=== PATIENT | female | born 1950 | race Caucasian/White ===

== ENCOUNTER 2016-06-12 03:30 | Inpatient (IN) | payer MEDICARE, OTHER ==
[~2016-06-12] VITALS: Ht 154.9 cm; Wt 100.6 kg
[2016-06-12] MEDS ORDERED: ONDANSETRON 2MG/ML, 2ML IVPush ONE (04:00)
[2016-06-12] MEDS ORDERED: MORPHINE SULFATE 4 MG/ML, 1ML IVPush PRN (04:00)
[2016-06-12] MEDS ORDERED: SODIUM CHLORIDE 0.9% 1,000ML IVBOLUS ONE (04:00)
[2016-06-12] MEDS ORDERED: ONDANSETRON 2MG/ML, 2ML ONE (04:16)
[2016-06-12] MEDS ORDERED: MORPHINE SULFATE 4 MG/ML, 1ML ONE (04:16)
[2016-06-12 04:51] LABS: ASPARTATE AMINO TRANSFERASE 115 U/L (15-37); BLOOD UREA NITROGEN 16 mg/dL (7-18)
[2016-06-12] MEDS ORDERED: OMNIPAQUE 350 MG/ML, 100ML BOTTLE ONE (05:17)
[2016-06-12] MEDS ORDERED: CEFTRIAXONE PMX 1GM/50ML 50 ML IV ONE (05:30)
[2016-06-12] MEDS ORDERED: CEFTRIAXONE PMX 1GM/50ML 50 ML ONE (06:09)
[2016-06-12] MEDS ORDERED: SODIUM CHLORIDE 0.9% 1,000 ML IV ONE (07:27)
[2016-06-12] MEDS ORDERED: SODIUM CHLORIDE FLUSH 10ML SYR IVF PRN (07:30)
[2016-06-12 08:03] VITALS: BP 120/66
[2016-06-12] MEDS ORDERED: SODIUM CHLORIDE 0.9% 1,000 ML IV SCH (09:01)
[2016-06-12] MEDS ORDERED: BISACODYL 10 MG SUPP PR PRN (09:30)
[2016-06-12] MEDS ORDERED: ONDANSETRON 2MG/ML, 2ML IVP PRN (09:30)
[2016-06-12] MEDS ORDERED: LABETALOL 5MG/ML, 20ML IV PRN (09:30)
[2016-06-12] MEDS: MORPHINE SULFATE 4 MG/ML, 1ML IVPush PRN ×4 (09:37→20:43)
[2016-06-12] MEDS: NICOTINE 7 MG/24 HR PATCH.TD24 TD SCH (10:00)
[2016-06-12] MEDS: LACTATED RINGERS 1,000 ML IV SCH ×3 (12:38→22:15)
[2016-06-12 14:41] VITALS: BP 113/62
[2016-06-12] MEDS: PANTOPRAZOLE 40 MG IV IVPush SCH (15:25)
[2016-06-12 16:33] LABS: ACETAMINOPHEN < 2 mcg/mL (10-30)
[2016-06-12 20:06] VITALS: BP 103/64
[2016-06-13] VITALS (13 sets, daily range): BP systolic 100–137; BP diastolic 56–76
[2016-06-13] MEDS: LACTATED RINGERS 1,000 ML IV SCH ×4 (02:18→22:11)
[2016-06-13] MEDS: MORPHINE SULFATE 4 MG/ML, 1ML IVPush PRN ×2 (02:18→17:38)
[2016-06-13 05:49] LABS: BLOOD UREA NITROGEN 21 mg/dL (7-18)
[2016-06-13 05:52] LABS: ASPARTATE AMINO TRANSFERASE 108 U/L (15-37)
[2016-06-13] MEDS ORDERED: FENTANYL PF 250 MCG/5ML ONE (09:01)
[2016-06-13] MEDS ORDERED: HYDROmorphone 1 MG/ML, 1ML IV PRN (09:30)
[2016-06-13] MEDS ORDERED: LABETALOL 5MG/ML, 20ML IV PRN (09:30)
[2016-06-13] MEDS ORDERED: ONDANSETRON 2MG/ML, 2ML IVPush PRN (09:30)
[2016-06-13] MEDS ORDERED: OXYcodone 5 MG/5 ML ORAL.SOL UDC PO PRN (09:30)
[2016-06-13] MEDS ORDERED: FENTANYL PF 100 MCG/2ML IV PRN (09:30)
[2016-06-13] MEDS ORDERED: hydrALAzine 20 MG/ML, 1ML IV PRN (09:30)
[2016-06-13 09:53] LABS: HEP B SURF. AB < 3.1 mIU/mL (0.0-10.0)
[2016-06-13] MEDS ORDERED: OMNIPAQUE 350 MG/ML, 50 ML BOTTLE ONE (09:55)
[2016-06-13] MEDS: NICOTINE 7 MG/24 HR PATCH.TD24 TD SCH (10:00)
[2016-06-13 10:32] LABS: HEPATITIS C VIRUS ANTIBODY Nonreactive (Nonreactive)
[2016-06-13] MEDS: CEFTRIAXONE PMX 1GM/50ML 50 ML IV SCH (12:27)
[2016-06-13] MEDS: PANTOPRAZOLE 40 MG IV IVPush SCH (12:27)
[2016-06-13] MEDS: PHYTONADIONE 10 MG in SODIUM CHLORIDE 0.9% 50 ML IV SCH (13:11)
[2016-06-13] MEDS ORDERED: DIPHENHYDRAMINE 25 MG CAPSULE PO ONE (21:00)
[2016-06-14 01:48] VITALS: BP 102/58
[2016-06-14] MEDS: LACTATED RINGERS 1,000 ML IV SCH ×6 (02:10→22:16)
[2016-06-14 05:20] LABS: BLOOD UREA NITROGEN 21 mg/dL (7-18)
[2016-06-14 05:25] LABS: ASPARTATE AMINO TRANSFERASE 80 U/L (15-37)
[2016-06-14 07:43] VITALS: BP 124/65
[2016-06-14] MEDS ORDERED: PROPOFOL 10 MG/ML, 20ML ONE ×2 (09:05→14:22)
[2016-06-14] MEDS ORDERED: SUCCINYLCHOLINE 20 MG/ML, 10ML ONE ×2 (09:05→14:22)
[2016-06-14] MEDS ORDERED: DEXAMETHASONE 4 MG/ML, 1ML ONE (09:05)
[2016-06-14] MEDS ORDERED: ROCURONIUM 10 MG/ML ONE ×2 (09:05→14:22)
[2016-06-14] MEDS: PANTOPRAZOLE 40 MG IV IVPush SCH (09:09)
[2016-06-14] MEDS: NICOTINE 7 MG/24 HR PATCH.TD24 TD SCH (09:16)
[2016-06-14] MEDS: MORPHINE SULFATE 4 MG/ML, 1ML IVPush PRN (10:08)
[2016-06-14] MEDS ORDERED: BUPIVACAINE/PF-EPI 0.5% 1:200K ONE (11:10)
[2016-06-14] MEDS: CEFTRIAXONE PMX 1GM/50ML 50 ML IV SCH (12:09)
[2016-06-14] MEDS: PHYTONADIONE 10 MG in SODIUM CHLORIDE 0.9% 50 ML IV SCH (13:39)
[2016-06-14] MEDS ORDERED: FENTANYL PF 250 MCG/5ML ONE (14:03)
[2016-06-14] MEDS ORDERED: MIDAZOLAM 1 MG/ML, 2ML ONE (14:03)
[2016-06-14] MEDS ORDERED: ONDANSETRON 2MG/ML, 2ML ONE (14:22)
[2016-06-14] MEDS ORDERED: NEOSTIGMINE 1 MG/ML, 10ML ONE (14:22)
[2016-06-14] MEDS ORDERED: GLYCOPYRROLATE 0.2MG/1ML ONE (14:22)
[2016-06-14] MEDS ORDERED: hydrALAzine 20 MG/ML, 1ML IV PRN (14:30)
[2016-06-14] MEDS ORDERED: LABETALOL 5MG/ML, 20ML IV PRN (14:30)
[2016-06-14] MEDS ORDERED: HYDROmorphone 1 MG/ML, 1ML IV PRN (14:30)
[2016-06-14] MEDS ORDERED: FENTANYL PF 100 MCG/2ML IV PRN (14:30)
[2016-06-14] MEDS ORDERED: ONDANSETRON 2MG/ML, 2ML IVPush PRN (14:30)
[2016-06-14] MEDS ORDERED: BUPIVACAINE/PF-EPI 0.5% 1:200K INFIL ONE (14:45)
[2016-06-14] MEDS ORDERED: OXYcodone 5 MG/5 ML ORAL.SOL UDC ONE (15:10)
[2016-06-14] MEDS: OXYcodone 5 MG/5 ML ORAL.SOL UDC PO PRN (15:11)
[2016-06-14 15:45] VITALS: BP 103/45
[2016-06-14 20:00] VITALS: BP 100/60
[2016-06-14 23:50] VITALS: BP 103/71
[2016-06-15] MEDS: LACTATED RINGERS 1,000 ML IV SCH ×2 (01:44→05:42)
[2016-06-15 02:16] VITALS: BP 105/62
[2016-06-15 05:44] LABS: ASPARTATE AMINO TRANSFERASE 87 U/L (15-37); BLOOD UREA NITROGEN 17 mg/dL (7-18)
[2016-06-15 07:38] VITALS: BP 90/43
[2016-06-15 07:42] VITALS: BP 119/73
[2016-06-15] MEDS: NICOTINE 7 MG/24 HR PATCH.TD24 TD SCH (10:00)
[2016-06-15] MEDS: PANTOPRAZOLE 40 MG IV IVPush SCH (10:43)
[2016-06-15] MEDS: PHYTONADIONE 10 MG in SODIUM CHLORIDE 0.9% 50 ML IV SCH (12:52)
[2016-06-15] MEDS: CEFTRIAXONE PMX 1GM/50ML 50 ML IV SCH (13:39)
[2016-06-15] MEDS ORDERED: FUROSEMIDE 20 MG/2 ML IV ONE (14:30)
[2016-06-15 14:43] VITALS: BP 109/63
[2016-06-15] MEDS ORDERED: ALBUTEROL/IPRATROPIUM 2.5MG/0.5MG, 3 ML NPPB PRN (16:00)
[2016-06-15 18:07] LABS: ANA DIRECT Negative (Negative); COMPLEMENT C3 80 mg/dL (82-167); COMPLEMENT C4 15 mg/dL (14-44); INTERMYOFIBRILLAR AB Negative (Neg:<1:20); MITOCHONDRIAL (M2) AB 6.2 Units (0.0-20.0); PARIETAL CELL AB 2.6 Units (0.0-20.0); RA LATEX TURBIDITY <10.0 IU/mL (0.0-13.9); SARCOLEMMA AB Negative (Neg:<1:20); SJOGREN'S SS-A AB <0.2 AI (0.0-0.9); STRIATION AB Negative (Neg:<1:40); THYROID PEROXIDASE (TPO) AB 46 IU/mL (0-34)
[2016-06-15 20:08] VITALS: BP 99/55
[2016-06-16 03:19] VITALS: BP 91/58
[2016-06-16 07:38] VITALS: BP 100/52
[2016-06-16] MEDS: PANTOPRAZOLE 40 MG IV IVPush SCH (09:00)
[2016-06-16 09:52] LABS: ASPARTATE AMINO TRANSFERASE 96 U/L (15-37); BLOOD UREA NITROGEN 14 mg/dL (7-18)
[2016-06-16] MEDS: NICOTINE 7 MG/24 HR PATCH.TD24 TD SCH (10:00)
[2016-06-16] MEDS ORDERED: CEFD300C37 PO (12:56)
[2016-06-16] MEDS ORDERED: ALBU18HF INH (12:56)
[2016-06-16] MEDS: OXYcodone 5 MG/5 ML ORAL.SOL UDC PO PRN (13:32)
[2016-06-16] MEDS: CEFTRIAXONE PMX 1GM/50ML 50 ML IV SCH ×2 (13:45→14:10)
[2016-06-16 14:13] VITALS: BP 107/65
== END 2016-06-16 16:50 | disposition home or self-care (01) | DRG 421 ==
LOC: ED 04:21 → EDIP 07:27 → 4NOR 07:58 → DCLOUNGE 06-16 16:00
PROVIDERS: ADMIT Family Medicine; ATTEND Family Medicine
PROC: 30233L1 Transfusion of Nonautologous Fresh Plasma into Peripheral Vein, Percutaneous Approach (ICD-10-PCS; 2016-06-12)
PROC: 30233K1 Transfusion of Nonautologous Frozen Plasma into Peripheral Vein, Percutaneous Approach (ICD-10-PCS; 2016-06-12)
PROC: 0DB68ZX Excision of Stomach, Via Natural or Artificial Opening Endoscopic, Diagnostic (ICD-10-PCS; 2016-06-13)
PROC: 0FC98ZZ Extirpation of Matter from Common Bile Duct, Via Natural or Artificial Opening Endoscopic (ICD-10-PCS; 2016-06-13)
PROC: BF111ZZ Fluoroscopy of Biliary and Pancreatic Ducts using Low Osmolar Contrast (ICD-10-PCS; 2016-06-13)
PROC: 0WJG4ZZ Inspection of Peritoneal Cavity, Percutaneous Endoscopic Approach (ICD-10-PCS; principal; 2016-06-14 14:30)
DX: K85.10 Biliary acute pancreatitis without necrosis or infection (principal); D68.9 Coagulation defect, unspecified; E44.0 Moderate protein-calorie malnutrition; B17.9 Acute viral hepatitis, unspecified; K76.6 Portal hypertension; R18.8 Other ascites; Z68.41 Body mass index [BMI] 40.0-44.9, adult; D64.9 Anemia, unspecified; B96.20 Unspecified Escherichia coli [E. coli] as the cause of diseases classified elsewhere; D69.6 Thrombocytopenia, unspecified; D75.89 Other specified diseases of blood and blood-forming organs; E66.01 Morbid (severe) obesity due to excess calories; F17.210 Nicotine dependence, cigarettes, uncomplicated; G89.29 Other chronic pain; M54.5 Low back pain; K80.20 Calculus of gallbladder without cholecystitis without obstruction; J44.9 Chronic obstructive pulmonary disease, unspecified; K31.89 Other diseases of stomach and duodenum; K72.90 Hepatic failure, unspecified without coma; K74.69 Other cirrhosis of liver; M04.8 Other autoinflammatory syndromes; Z83.3 Family history of diabetes mellitus; Z90.710 Acquired absence of both cervix and uterus; R59.1 Generalized enlarged lymph nodes
CPT/HCPCS: 36415; 71010; 74177; 74181; 74328; 76700; 80053; 80061; 80307; 80329; 81001; 82728; 83516; 83540; 83550; 83690; 83735; 84100; 85025; 85610; 86038; 86160; 86225; 86235; 86255; 86256; 86376; 86431; 86706; 86803; 86850; 86900; 87077; 87086; 87186; 87340; 88305; 93005; 94640; 96365; 96375; J0696; J1100; J2250; J2405; J2704; J2710; J3010; J3430; J3490; J7620; Q9967; C9113; G0480; J0330; J1940; J7030; J7120; P9017; Q0163

== ENCOUNTER 2016-06-19 17:05 | Inpatient (IN) | payer MEDICARE ==
[~2016-06-19] VITALS: Ht 156.2 cm; Wt 96.2 kg
[~2016-06-19 17:05] MED LIST: ALBU18HF INH; CEFD300C37 PO
[2016-06-19] MEDS ORDERED: SODIUM CHLORIDE FLUSH 10ML SYR IVF ONE (17:30)
[2016-06-19 18:01] LABS: ASPARTATE AMINO TRANSFERASE 116 U/L (15-37); BLOOD UREA NITROGEN 14 mg/dL (7-18)
[2016-06-19] MEDS ORDERED: POTASSIUM CHLORIDE 20 MEQ TAB.ER.PRT PO ONE (21:30)
[2016-06-19] MEDS ORDERED: CEFTRIAXONE PMX 1GM/50ML 50 ML IV SCH (21:30)
[2016-06-19] MEDS ORDERED: SODIUM CHLORIDE FLUSH 10ML SYR IVF PRN (22:00)
[2016-06-19 23:16] VITALS: BP 122/71
[2016-06-20] MEDS ORDERED: ONDANSETRON ODT 4 MG PO PRN (00:30)
[2016-06-20 01:11] VITALS: BP 109/69
[2016-06-20] MEDS: SPIRONOLACTONE 25 MG TABLET PO SCH ×3 (01:17→20:36)
[2016-06-20] MEDS: CEFDINIR 300 MG CAPSULE PO SCH ×3 (01:17→20:36)
[2016-06-20 05:07] LABS: BLOOD UREA NITROGEN 12 mg/dL (7-18)
[2016-06-20 05:32] LABS: ASPARTATE AMINO TRANSFERASE 110 U/L (15-37)
[2016-06-20 07:48] VITALS: BP 127/72
[2016-06-20] MEDS: FUROSEMIDE 20 MG/2 ML IV SCH (10:57)
[2016-06-20 12:52] VITALS: BP 97/58
[2016-06-20 19:37] VITALS: BP 108/64
[2016-06-21 02:58] VITALS: BP 96/62
[2016-06-21 04:38] LABS: BLOOD UREA NITROGEN 11 mg/dL (7-18)
[2016-06-21 06:51] VITALS: BP 96/62
[2016-06-21] MEDS: SPIRONOLACTONE 25 MG TABLET PO SCH ×2 (08:49→21:42)
[2016-06-21] MEDS: CEFDINIR 300 MG CAPSULE PO SCH ×2 (08:49→21:42)
[2016-06-21] MEDS: FUROSEMIDE 20 MG/2 ML IV SCH (08:49)
[2016-06-21 12:40] VITALS: BP 96/61
[2016-06-21 21:55] VITALS: BP 99/63
[2016-06-22 03:49] VITALS: BP 103/64
[2016-06-22 06:03] LABS: BLOOD UREA NITROGEN 12 mg/dL (7-18)
[2016-06-22 06:07] LABS: ASPARTATE AMINO TRANSFERASE 123 U/L (15-37)
[2016-06-22] MEDS ORDERED: CEFD300C37 PO (07:50)
[2016-06-22] MEDS ORDERED: SPIR25TA PO (07:50)
[2016-06-22] MEDS ORDERED: FURO-93 PO (07:50)
[2016-06-22 08:00] VITALS: BP 102/65
[2016-06-22] MEDS: SPIRONOLACTONE 25 MG TABLET PO SCH (09:34)
[2016-06-22] MEDS: CEFDINIR 300 MG CAPSULE PO SCH (09:34)
[2016-06-22] MEDS: FUROSEMIDE 20 MG/2 ML IV SCH (09:34)
[2016-06-22 12:19] VITALS: BP 93/60
== END 2016-06-22 13:50 | disposition home or self-care (01) | DRG 432 ==
LOC: SUATTDRO 20:46 → ED 21:28 → EDIP 21:53 → 3NW 23:04
PROVIDERS: ADMIT Internal Medicine; ATTEND Internal Medicine
DX: K70.31 Alcoholic cirrhosis of liver with ascites (principal); K85.90 Acute pancreatitis without necrosis or infection, unspecified; E43 Unspecified severe protein-calorie malnutrition; J96.10 Chronic respiratory failure, unspecified whether with hypoxia or hypercapnia; N39.0 Urinary tract infection, site not specified; D68.9 Coagulation defect, unspecified; K72.90 Hepatic failure, unspecified without coma; D69.6 Thrombocytopenia, unspecified; E87.6 Hypokalemia; E66.9 Obesity, unspecified; F17.200 Nicotine dependence, unspecified, uncomplicated; G89.29 Other chronic pain; J44.9 Chronic obstructive pulmonary disease, unspecified; K80.70 Calculus of gallbladder and bile duct without cholecystitis without obstruction; Z83.3 Family history of diabetes mellitus; Z90.710 Acquired absence of both cervix and uterus; Z99.81 Dependence on supplemental oxygen; Z84.89 Family history of other specified conditions; Z68.39 Body mass index [BMI] 39.0-39.9, adult; R60.9 Edema, unspecified
CPT/HCPCS: 36415; 74181; 76700; 80048; 80053; 81001; 82150; 82247; 82607; 82746; 83690; 83735; 83880; 84100; 84443; 85025; 85610; 85730; 87086; 87106; 93306; 96374; J1940

== ENCOUNTER → 2016-12-02 | Outpatient (CLI) | payer MEDICARE ==
[~2016-12-02] MED LIST changes: +FURO-93 PO; +SPIR25TA PO
[2016-12-02 09:17] LABS: BLOOD UREA NITROGEN 13 mg/dL (7-18)
[2016-12-02 09:20] LABS: ASPARTATE AMINO TRANSFERASE 79 U/L (15-37)
== END | disposition home or self-care (01) ==
LOC: CFH 07:32
PROVIDERS: ATTEND Internal Medicine Gastroenterology
DX: K74.69 Other cirrhosis of liver (principal); R16.1 Splenomegaly, not elsewhere classified; K82.0 Obstruction of gallbladder; K85.12 Biliary acute pancreatitis with infected necrosis; R18.8 Other ascites; J44.9 Chronic obstructive pulmonary disease, unspecified
CPT/HCPCS: 36415; 76700; 80053

== ENCOUNTER 2017-03-12 12:15 | Emergency (ER) | payer MEDICARE ==
[~2017-03-12] VITALS: Ht 165.1 cm; Wt 77.5 kg
[2017-03-12 12:40] VITALS: BP 114/71
== END 2017-03-12 15:57 | disposition home or self-care (01) ==
LOC: ED 15:48
DX: S20.211A Contusion of right front wall of thorax, initial encounter (principal); Z87.891 Personal history of nicotine dependence; W18.39XA Other fall on same level, initial encounter; Y93.89 Activity, other specified; Y92.488 Other paved roadways as the place of occurrence of the external cause; Y99.8 Other external cause status
CPT/HCPCS: 99284

== ENCOUNTER 2017-03-23 00:50 | Inpatient (IN) | payer MEDICARE ==
[~2017-03-23] VITALS: Ht 152.4 cm; Wt 75.0 kg
[2017-03-23] MEDS ORDERED: LORazepam 2 MG/ML, 1ML ONE (01:47)
[2017-03-23] MEDS ORDERED: SODIUM CHLORIDE FLUSH 10ML SYR IVF ONE (02:00)
[2017-03-23] MEDS ORDERED: LORazepam 2 MG/ML, 1ML IVP ONE (02:00)
[2017-03-23 02:18] LABS: INTERNATIONAL NORMALIZED RATIO 1.78 (0.93-1.1); PROTHROMBIN TIME 18.1 Seconds (9.6-11.5)
[2017-03-23 02:21] LABS: ALANINE AMINOTRANSFERASE 40 U/L (12-78); ALBUMIN 1.8 g/dL (3.4-5.0); ANION GAP 22 mmol/L (5-15); CALCIUM 8.4 mg/dL (8.5-10.1); CHLORIDE 102 mmol/L (98-107); CREATININE 3.17 mg/dL (0.55-1.02)
[2017-03-23 02:25] LABS: ALKALINE PHOSPHATASE 207 U/L (45-117); BILIRUBIN,TOTAL 8.5 mg/dL (0.2-1.0); TOTAL PROTEIN 6.3 g/dL (6.4-8.2); TROPONIN I < 0.015 ng/mL (0.000-0.045)
[2017-03-23] MEDS ORDERED: DEXTROSE 50%, 50ML SYRINGE ONE ×2 (02:33→02:52)
[2017-03-23] MEDS ORDERED: DEXAMETHASONE 4 MG/ML, 1ML ONE (02:52)
[2017-03-23] MEDS ORDERED: INSULIN REGULAR 100 UNITS/ML, 3ML VIAL ONE (02:52)
[2017-03-23] MEDS ORDERED: SODIUM BICARB 8.4%, 50ML SYRINGE ONE (02:52)
[2017-03-23] MEDS ORDERED: CALCIUM CHLORIDE 10%, 10ML SYR ONE (02:52)
[2017-03-23] MEDS ORDERED: DEXTROSE 50%, 50ML SYRINGE IVPush ONE ×2 (03:00)
[2017-03-23] MEDS ORDERED: INSULIN REGULAR 100 UNITS/ML, 3ML VIAL IVPush ONE (03:00)
[2017-03-23] MEDS ORDERED: SODIUM POLY SULFONATE UDC 15 GM/60 ML PO ONE (03:00)
[2017-03-23] MEDS ORDERED: D5%-0.45% NACL 1,000 ML IV SCH (03:00)
[2017-03-23] MEDS ORDERED: ALBUTEROL 0.5%, 20ML NPPB ONE (03:00)
[2017-03-23] MEDS ORDERED: DEXAMETHASONE 4 MG/ML, 1ML IVPush ONE (03:00)
[2017-03-23] MEDS ORDERED: FUROSEMIDE 20 MG/2 ML IV ONE (03:00)
[2017-03-23] MEDS ORDERED: CALCIUM CHLORIDE 10%, 10ML SYR IVPush ONE (03:00)
[2017-03-23] MEDS ORDERED: SODIUM BICARB 8.4%, 50ML SYRINGE IVPush ONE (03:00)
[2017-03-23 03:20] LABS: MD YES; MEAN CORPUSCULAR HEMOGLOBIN 36.5 pg (27.0-34.8); MEAN CORPUSCULAR HGB CONC 32.8 g/dL (32.4-35.8); MEAN CORPUSCULAR VOLUME 111.4 fL (80-100); MEAN PLATELET VOLUME 9.6 fL (7.4-10.4); PLATELET COUNT 153 x10^3/uL (130-400); RED BLOOD COUNT 3.58 x10^6/uL (3.82-5.3); RED CELL DISTRIBUTION WIDTH 17.7 % (9.6-15.2)
[2017-03-23 03:22] LABS: BAND#(MANUAL) 2.25 x10^3/uL; BANDS%(MANUAL) 30 % (0-7); LYMPH#(MANUAL) 1.95 x10^3/uL (1-3.4); LYMPHS% (MANUAL) 26 % (22-44); METAMYELOCYTES# (MANUAL) 0.15 x10^3/uL (0-0); METAMYELOCYTES% (MANUAL) 2 % (0-1); MONOS#(MANUAL) 0.23 x10^3/uL (0.3-2.7); MONOS% (MANUAL) 3 % (2-9); SEG#(MANUAL) 2.93 x10^3/uL (1.8-6.8); SEGS% (MANUAL) 39 % (42-75)
[2017-03-23 03:23] LABS: <PLATELET ESTIMATE> ADEQUATE; <PLT MORPHOLOGY> NORMAL PLT MORPH; ANISOCYTOSIS 1+; POLYCHROMASIA 1+
[2017-03-23] MEDS ORDERED: FUROSEMIDE 40 MG/4 ML ONE (03:52)
[2017-03-23] MEDS ORDERED: morphine SULFATE 10 MG/ML, 1ML IVPush PRN (04:00)
[2017-03-23] MEDS ORDERED: POLYETHYLENE GLYCOL 17 GM PACKET PO PRN (04:00)
[2017-03-23] MEDS ORDERED: D5%-0.9% NACL 1,000 ML IV SCH (04:00)
[2017-03-23] MEDS: ALBUMIN HUMAN 25% 100 ML IV SCH ×2 (04:00→10:00)
[2017-03-23] MEDS ORDERED: DOCUSATE 100 MG CAPSULE PO PRN (04:00)
[2017-03-23] MEDS ORDERED: ONDANSETRON 2MG/ML, 2ML IVPush PRN (04:00)
[2017-03-23] MEDS ORDERED: BISACODYL 10 MG SUPP PR PRN ×2 (04:00→07:30)
[2017-03-23] MEDS ORDERED: hydrALAzine 20 MG/ML, 1ML IVPush PRN (04:00)
[2017-03-23] MEDS ORDERED: KETAMINE 100 MG/ML, 5ML ONE (04:07)
[2017-03-23] MEDS ORDERED: MIDAZOLAM HCL 25 MG in SODIUM CHLORIDE 0.9% 245 ML IV PRN (04:08)
[2017-03-23] MEDS ORDERED: FENTANYL PF 100 MCG/2ML ONE (04:18)
[2017-03-23] MEDS ORDERED: PIPERACILLIN/TAZO 2.25 GM in SODIUM CHLORIDE 0.9% 50 ML IV SCH (04:30)
[2017-03-23] MEDS ORDERED: KETAMINE 100 MG/ML, 5ML IV ONE (04:30)
[2017-03-23] MEDS ORDERED: FENTANYL PF 2,500 MCG in SODIUM CHLORIDE 0.9% 200 ML IV ONE (04:30)
[2017-03-23] MEDS ORDERED: AZITHROMYCIN 500 MG in SODIUM CHLORIDE 0.9% 250 ML IV SCH (04:30)
[2017-03-23] MEDS ORDERED: ROCURONIUM 10 MG/ML,10ML IVPush ONE (04:30)
[2017-03-23] MEDS ORDERED: CEFTRIAXONE PMX 2GM/50ML 50 ML IV SCH (04:30)
[2017-03-23] MEDS ORDERED: FENTANYL PF 100 MCG/2ML IV ONE (04:30)
[2017-03-23] MEDS ORDERED: SODIUM BICARBONATE 8.4% 150 MEQ in DEXTROSE 5% 1,000 ML IV SCH ×2 (05:00→07:30)
[2017-03-23 05:09] LABS: ANION GAP 21 mmol/L (5-15); CALCIUM 8.3 mg/dL (8.5-10.1); CHLORIDE 104 mmol/L (98-107); CREATININE 3.29 mg/dL (0.55-1.02)
[2017-03-23 05:13] LABS: TROPONIN I < 0.015 ng/mL (0.000-0.045)
[2017-03-23 05:22] LABS: FREE T4 (FREE THYROXINE) 1.15 ng/dL (0.76-1.46); THYROID STIMULATING HORMONE 4.5 mIU/L (0.358-3.740)
[2017-03-23 05:22] LABS: MICROSCOPIC INDICATED
[2017-03-23 05:30] LABS: CULTURE INDICATED? YES
[2017-03-23 05:48] VITALS: BP 107/33
[2017-03-23] MEDS ORDERED: NOREPINEPHRINE 1 MG/ML, 4ML ONE (06:51)
[2017-03-23] MEDS ORDERED: ALBUTEROL/IPRATROPIUM 2.5MG/0.5MG, 3 ML NPPB SCH (07:00)
[2017-03-23] MEDS ORDERED: NOREPINEPHRINE 4 MG in SODIUM CHLORIDE 0.9% 246 ML IV PRN (07:10)
[2017-03-23] MEDS ORDERED: SENNOSIDES 8.8 MG/5 ML ORAL SOL NG PRN (07:30)
[2017-03-23] MEDS ORDERED: MIDAZOLAM 1 MG/ML, 2ML IVPush PRN (07:30)
[2017-03-23] MEDS ORDERED: LIDOCAINE-MPF 1%, 2ML ENDO PRN (07:30)
[2017-03-23] MEDS ORDERED: FENTANYL PF 100 MCG/2ML IVPush PRN (07:30)
[2017-03-23] MEDS ORDERED: PHARMACY MAY ADJ FOR RENAL FX MC SCH (07:30)
[2017-03-23] MEDS ORDERED: FAMOTIDINE 20 MG/2 ML IV SCH (07:30)
[2017-03-23] MEDS ORDERED: SENNA/DOCUSATE TABLET NG PRN (07:30)
[2017-03-23] MEDS ORDERED: LACTULOSE 20 GM/30 ML UDC NG PRN (07:30)
[2017-03-23] MEDS ORDERED: SODIUM CHLORIDE 0.9% 1,000ML IVBOLUS ONE ×2 (07:30→10:30)
[2017-03-23] MEDS ORDERED: ALBUTEROL/IPRATROPIUM 2.5MG/0.5MG, 3 ML INLINE SCH (07:30)
[2017-03-23 07:54] LABS: TROPONIN I < 0.015 ng/mL (0.000-0.045)
[2017-03-23] MEDS ORDERED: ROCURONIUM 10 MG/ML,10ML ONE (08:00)
[2017-03-23] MEDS ORDERED: OCTREOTIDE 100MCG/ML, 1ML (0.1MG/ML) SQ SCH (09:00)
[2017-03-23] MEDS ORDERED: MIDODRINE 5 MG TABLET NG SCH (09:00)
[2017-03-23] MEDS ORDERED: SODIUM BICARBONATE 8.4% 150 MEQ in DEXTROSE 10% 1,000 ML IV SCH (09:00)
[2017-03-23] MEDS ORDERED: VASOPRESSIN 100 UNIT in SODIUM CHLORIDE 0.9% 495 ML IV PRN (10:00)
[2017-03-23] MEDS ORDERED: HYDROCORTISONE 100 MG INJ. IVPush SCH (10:30)
[2017-03-23] MEDS ORDERED: EPINEPHRINE 1 MG in SODIUM CHLORIDE 0.9% 249 ML IV PRN (11:00)
[2017-03-23] MEDS ORDERED: LORazepam 2 MG/ML, 1ML IVPush PRN ×2 (12:00)
== END 2017-03-23 12:07 | disposition expired | DRG 871 ==
LOC: ED 01:04 → EDIP 03:15 → CCU 06:01
PROVIDERS: ADMIT Internal Medicine; ATTEND Internal Medicine
PROC: 5A1935Z Respiratory Ventilation, Less than 24 Consecutive Hours (ICD-10-PCS; principal; 2017-03-23)
PROC: 0BH17EZ Insertion of Endotracheal Airway into Trachea, Via Natural or Artificial Opening (ICD-10-PCS; 2017-03-23)
PROC: 02HV33Z Insertion of Infusion Device into Superior Vena Cava, Percutaneous Approach (ICD-10-PCS; 2017-03-23)
DX: A41.9 Sepsis, unspecified organism (principal); J96.21 Acute and chronic respiratory failure with hypoxia; R57.9 Shock, unspecified; K76.7 Hepatorenal syndrome; E43 Unspecified severe protein-calorie malnutrition; D68.59 Other primary thrombophilia; N17.9 Acute kidney failure, unspecified; E87.2 Acidosis; Z99.11 Dependence on respirator [ventilator] status; I50.32 Chronic diastolic (congestive) heart failure; K76.6 Portal hypertension; J44.0 Chronic obstructive pulmonary disease with (acute) lower respiratory infection; R18.8 Other ascites; D69.6 Thrombocytopenia, unspecified; E87.5 Hyperkalemia; E86.9 Volume depletion, unspecified; K72.90 Hepatic failure, unspecified without coma; G89.29 Other chronic pain; F17.210 Nicotine dependence, cigarettes, uncomplicated; Z51.5 Encounter for palliative care; M54.9 Dorsalgia, unspecified; D75.89 Other specified diseases of blood and blood-forming organs; K31.89 Other diseases of stomach and duodenum; E66.9 Obesity, unspecified; E16.2 Hypoglycemia, unspecified; Z68.32 Body mass index [BMI] 32.0-32.9, adult; Z83.3 Family history of diabetes mellitus; Z90.710 Acquired absence of both cervix and uterus; Z99.81 Dependence on supplemental oxygen
CPT/HCPCS: 31500; 36415; 36600; 51702; 71045; 76700; 80048; 80053; 81001; 82140; 82533; 82803; 82962; 83036; 83735; 83880; 84439; 84443; 84478; 84484; 85025; 85610; 85730; 87040; 87070; 87077; 87081; 87086; 87186; 87205; 93005; 93970; 94002; 94003; 94640; 94660; 96365; 96366; 96375; J1100; J2250; J2354; J2543; J3010; J7070; J7620; J0171; J1940; J2060; J7030; J7040; J7050; S0028